=== PATIENT | female | born 1945 | race Caucasian/White ===

== ENCOUNTER 2016-06-16 10:59 | Emergency (ER) | payer OTHER ==
--- NOTE | 2016-06-16 11:09 | PDOC ---
History of Present Illness - General History Source: Patient, EMS Exam Limitations: No Limitations - History of Present Illness Initial Comments: 06/16/16 11:20 The patient is a 70 year old female brought via EMS and presenting with her , with a significant past medical history of HTN, HLD, asthma and diabetes, who presents to the emergency department with left hip pain and back pain, after a fall today roughly 1 hour prior to presentation. She states that she was walking on the sidewalk and when she slipped on ice, landing on her buttocks and then hitting the back of her head. She denies head trauma or loss of consciousness. She notes that she wanted to get up but other individuals on the scene would not allow her as to be precautious. On presentation the patient is able to move her lower extremities without any complications. The patient denies chest pain, shortness of breath, headache and dizziness. Allergies: None Past surgical history: None reported Social history: No alcohol, tobacco or drug use reported <Jacky Posey - Last Filed: 06/16/16 13:21> <Ric Awan - Last Filed: 06/16/16 13:29> - General Stated Complaint: FALL Time Seen by Provider: 06/16/16 11:07 Past History <Jacky Posey - Last Filed: 06/16/16 13:21> - Past Medical History Asthma: Yes Diabetes: Yes HTN: Yes Hypercholesterolemia: Yes - Psycho/Social/Smoking Cessation Hx Suicidal Ideation: No Smoking Status: No Smoking History: Never smoked Have you smoked in the past 12 months: No Number of Cigarettes Smoked Daily: 0 Hx Alcohol Use: No Drug/Substance Use Hx: No Substance Use Type: None Hx Substance Use Treatment: No <Ric Awan - Last Filed: 06/16/16 13:29> - Past Medical History Allergies/Adverse Reactions: Allergies Allergy/AdvReac Type Severity Reaction Status Date / Time No Known Allergies Allergy Verified 06/16/16 11:27 Home Medications: Ambulatory Orders Amlodipine Besylate [Norvasc -] 10 mg PO DAILY 06/27/15 Buspirone HCl [Buspar -] 10 mg PO DAILY 06/27/15 Calcium Carbonate/Vitamin D3 [Calcium 500-Vit D3 200 Caplet] 1 each PO BID 02/10 /16 Esomeprazole Mag Trihydrate [Nexium] 40 mg PO DAILY 06/27/15 [place]-3 Acid Ethyl Esters [Lovaza -] 2,000 mg PO BID 06/27/15 Valsartan [Diovan] 160 mg PO DAILY 06/27/15 Budesonide/Formeterol Fumarate [SYMBICORT 160/4.5mcg -] 2 puff IH BID inhaler 06/28/15 Guaifenesin [Mucinex -] 600 mg PO BID tablet.er 06/28/15 Montelukast Na [Singulair -] 10 mg PO HS tablet 06/28/15 Review of Systems - Review of Systems Able to Perform ROS?: Yes Comments:: 06/16/16 11:20 <Jacky Posey - Last Filed: 06/16/16 13:21> - Review of Systems Constitutional: No: Chills, Fever HEENTM: No: Recent change in vision Respiratory: No: Shortness of Breath Cardiac (ROS): No: Chest Pain ABD/GI: No: Nausea, Vomiting Musculoskeletal: Yes: Muscle Pain Neurological: No: Headache, Tingling, Weakness All Other Systems: Reviewed and Negative <Ric Awan - Last Filed: 06/16/16 13:29> *Physical Exam - Physical Exam Comments: 06/16/16 11:20 General: Patient is alert and in no acute distress. Speech is clear and appropriate. Head: Atraumatic and nontender. HEENT: Pupils are equal round and reactive to light, extraocular movements are intact. The tympanic membranes are clear, no hemotympanum. No facial deformity/tenderness, no septal hematoma. The oropharynx is clear. Neck: The trachea is midline, there is no stridor. There is no midline cervical spine tenderness, full range of motion of neck. Chest: Nontender, no ecchymosis or abrasions. Heart: S1-S2, regular rate and rhythm. No murmurs. Lungs: Clear to auscultation bilaterally. Symmetric chest rise. Abdomen: Soft/nontender/nondistended. Bowel sounds are normal. There is no abdominal or flank ecchymosis. Musculoskeletal: No rib deformity, bruising or tenderness. Back/Pelvis: +Left hip discomfort to palpation. But no deformity. Full range of motion. There is no midline spinal tenderness or step-off. Pelvis is stable and nontender. Extremities: There is no extremity deformity or joint swelling. No focal bony tenderness throughout. 2+ distal pulses throughout. Neuro: Alert and oriented x3. Cranial nerves II through XII are intact. 5 out of 5 motor strength x4 extremities. Finger-nose- finger is intact. No pronator drift. Gait is stable. Skin: No abrasions/hematomas/lacerations. Psych: Affect is appropriate. <Jacky Posey - Last Filed: 06/16/16 13:21> ED Treatment Course - RADIOLOGY Radiograph Interpretation: 06/16/16 12:[address] Reviewed by: Dr. Kale Peñaloza Impression: No evidence of acute intracranial hemorrhage, edema, midline shift, mass effect or skull fracture. No CT evidence of acute territorial infarction. Hip/Pelvis Left Reviewed by: Dr. Awais Interiano Impression: No acute abnormality is seen. <Jacky Posey - Last Filed: 06/16/16 13:21> Medical Decision Making - Medical Decision Making 06/16/16 11:23 A portion of this note was documented by scribe services under my direction. I have reviewed the details of the note, within reason, and agree with the documentation with the following case summary and management plan written by me. 70-year-old female brought in by EMS complaining of posterior head and left leg pain after slip and fall on ice. Landed initially on her lower back and buttock , then struck the back of her head. No loss of consciousness, bystanders told her to lay on the floor while he called EMS. Patient feels well otherwise, wants to go home, ambulated comfortably in the ED without difficulty. Trauma exam as noted with some left hip discomfort, but full range of motion and neurovascularly intact. 70-year-old female with mechanical slip and fall on ice, positive head injury and left hip injury, no clinical evidence of fracture. Neurologically intact. CT head Left hip and pelvis Tramadol for pain Reassess and dispo 06/16/16 13:26 X-ray and CAT scan negative for acute injury. Remains neurologically intact, ambulating steadily in ED, stable for discharge. Understands return criteria. <Ric Awan - Last Filed: 06/16/16 13:29> *DC/Admit/Observation/Transfer - Attestations Scribe Attestion: 06/16/16 11:21 Documentation prepared by Jacky Posey, acting as medical staff credentialing coordinator for iRc Awan MD. <Jacky Posey - Last Filed: 06/16/16 13:21> <Ric Awan - Last Filed: 06/16/16 13:29> Diagnosis at time of Disposition: Accidental fall Qualifiers: Encounter type: initial encounter Qualified Code(s): W19.XXXA - Unspecified fall, initial encounter Closed head injury Qualifiers: Encounter type: initial encounter Qualified Code(s): S09.90XA - Unspecified injury of head, initial encounter - Discharge Dispostion Disposition: HOME Condition at time of disposition: Improved - Patient Instructions Printed Discharge Instructions: DI for Closed Head Injury, DI for Musculoskeletal Pain Additional Instructions: Activity as tolerated. Stay hydrated. There is no evidence of acute injury in the head or Left hip. Tylenol 1000 mg every 8 hours and/or ibuprofen 600 mg every 8 hours as needed for pain. Ice and elevate the affected areas for 20 minutes every 3-4 hours to reduce swelling. Continue your medications as previously prescribed by your physician. You should follow up with your primary doctor as needed regarding today's emergency department visit. Return to the emergency department for any new or concerning symptoms, particularly worsening headache or confusion or vomiting, severe swelling, discoloration, numbness, tingling, pain.
[2016-06-16] MEDS ORDERED: traMADol HCL 50 MG TABLET PO ONE (11:19)
[2016-06-16] MEDS ORDERED: traMADol HCL 50 MG TABLET ONE (11:29)
[2016-06-16 11:30] VITALS: BMI 28.9
[2016-06-16 14:07] VITALS: BP 145/90; PULSE 70; TEMP 98.1
== END 2016-06-16 14:07 | disposition home or self-care (01) ==
LOC: SUPCPDRO 10:59 → JER 10:59
DX: S09.8XXA Other specified injuries of head, initial encounter (principal); W00.2XXA Other fall from one level to another due to ice and snow, initial encounter; Y93.89 Activity, other specified; Y92.480 Sidewalk as the place of occurrence of the external cause; I10 Essential (primary) hypertension; E11.9 Type 2 diabetes mellitus without complications; E78.00 Pure hypercholesterolemia, unspecified; J45.909 Unspecified asthma, uncomplicated
CPT/HCPCS: 70450-TC; 73523-TC; 99283-25

== ENCOUNTER → 2016-10-04 | Emergency (ER) | payer OTHER ==
[~2016-10-04] MED LIST: ALBUTEROL SO4 2.5/IPRATROPIUM 0.5 INH SOL 3 ML VIAL.NEB. NEB ONE; AZITHROMYCIN 250 MG TABLET (FP) ONE; AZITHROMYCIN 250 MG TABLET (FP) PO ONE; METHOCARBAMOL 500 MG TABLET ONE; METHOCARBAMOL 500 MG TABLET PO ONE; ONDANSETRON 4 MG/2 ML VIAL IVPB ONE; ONDANSETRON 4 MG/2 ML VIAL ONE; SODIUM CHLORIDE 1,000 ML IV STA; morphine CARPU-JECT 2 MG/1 ML DISP.SYRIN IVPUSH ONE; morphine CARPU-JECT 2 MG/1 ML DISP.SYRIN ONE; predniSONE 20 MG TABLET (UD) ONE; predniSONE 20 MG TABLET (UD) PO ONE
[2016-10-04 01:20] VITALS: BMI 26.5
[2016-10-04 02:24] LABS: BASOPHIL 0.6 % (0-2.0); EOSINOPHIL 5.6 % (0-4.5); MCH 26.7 pg (25.7-33.7); MCHC 32.6 g/dl (32.0-36.0); MEAN CELL VOLUME 81.6 fl (80-96); MEAN PLT VOLUME 7.6 fl (7.5-11.1); NEUTROPHILS 65.6 % (42.8-82.8); PLATELET COUNT 208 K/MM3 (134-434); RDW 14.5 % (11.6-15.6); WHITE BLOOD COUNT 8.7 K/mm3 (4.0-10.0)
[2016-10-04 02:28] LABS: URINE APPEARANCE CLEAR; URINE BILIRUBIN NEGATIVE (NEGATIVE); URINE BLOOD NEGATIVE (NEGATIVE); URINE COLOR STRAW; URINE GLUCOSE (UA) NEGATIVE (NEGATIVE); URINE KETONE NEGATIVE (NEGATIVE); URINE NITRITE NEGATIVE (NEGATIVE); URINE PROTEIN NEGATIVE (NEGATIVE); URINE UROBILINOGEN NEGATIVE E.U./dl (0.2-1.0)
[2016-10-04] MEDS: ALBUTEROL SO4 2.5/IPRATROPIUM 0.5 INH SOL 3 ML VIAL.NEB. NEB SCH ×3 (02:30→03:14)
[2016-10-04 02:46] LABS: ALBUMIN 4.1 g/dl (3.4-5.0); ANION GAP 10 (8-16); CALCIUM 8.9 mg/dL (8.5-10.1); CO2 28 mmol/L (21-32); CREATININE 0.7 mg/dL (0.55-1.02); GLUCOSE,RANDOM 117 mg/dL (74-106); MAGNESIUM 1.8 mg/dL (1.8-2.4); SGOT/AST 26 U/L (15-37); SGPT/ALT 34 U/L (12-78)
[2016-10-04 02:48] LABS: URINE LEUK ESTERASE 2+ (NEGATIVE)
[2016-10-04 02:49] LABS: URINE MUCUS RARE; URINE RBC 1 /hpf (0-3); URINE WBC 2 /hpf (3-5)
[2016-10-04 02:50] LABS: ALK PHOS 114 U/L (45-117); BILIRUBIN,TOTAL 0.5 mg/dL (0.2-1.0); TOT PROT 7.9 g/dl (6.4-8.2); TROPONIN I < 0.02 ng/ml (0.00-0.05)
--- NOTE | 2016-10-04 06:08 | PDOC ---
History of Present Illness - General Chief Complaint: Headache Stated Complaint: BLOOD PRESSURE PROBLEM,HEADACHE Time Seen by Provider: 10/04/16 01:47 History Source: Patient Exam Limitations: No Limitations - History of Present Illness Initial Comments: 10/04/16 06:03 70yo Female patient w/ PmHx: HTN, DM presents to ED c/o h/a, congestion, groin pain which began on Thursday. Patient states symptom have gotten worse. Patient also reports blood pressure is "high." Denies CP, Abd pain, Diff breathing, fever, n/v/d, rash, or any other complaints at this time. Past History - Travel Traveled outside of the country in the last 30 days: No Close contact w/someone who was outside of country & ill: No - Past Medical History Allergies/Adverse Reactions: Allergies Allergy/AdvReac Type Severity Reaction Status Date / Time No Known Allergies Allergy Verified 10/04/16 01:14 Home Medications: Ambulatory Orders Amlodipine Besylate [Norvasc -] 10 mg PO DAILY 06/27/15 Buspirone HCl [Buspar -] 10 mg PO DAILY 06/27/15 Calcium Carbonate/Vitamin D3 [Calcium 500-Vit D3 200 Caplet] 1 each PO BID 06/27 Esomeprazole Mag Trihydrate [Nexium] 40 mg PO DAILY 06/27/15 [place]-3 Acid Ethyl Esters [Lovaza -] 2,000 mg PO BID 06/27/15 Valsartan [Diovan] 160 mg PO DAILY 06/27/15 Budesonide/Formeterol Fumarate [SYMBICORT 160/4.5mcg -] 2 puff IH BID inhaler 06/28/15 Guaifenesin [Mucinex -] 600 mg PO BID tablet.er 06/28/15 Montelukast Na [Singulair -] 10 mg PO HS tablet 06/28/15 Tramadol HCl [Ultram] 50 mg PO BID PRN #10 tablet MDD 2 06/16/16 Albuterol Sulfate Inhaler - [Ventolin Hfa Inhaler -] 1 - 2 inh PO Q4H PRN #1 inhaler 10/04/16 Azithromycin [Zithromax -] 250 mg PO DAILY #4 tablet 10/04/16 Prednisone 10 mg PO ASDIR #1 tab.ds.pk 10/04/16 Asthma: Yes Diabetes: Yes HTN: Yes Hypercholesterolemia: Yes - Immunization History Immunization Up to Date: Yes - Psycho/Social/Smoking Cessation Hx Suicidal Ideation: No Smoking Status: No Smoking History: Never smoked Have you smoked in the past 12 months: No Number of Cigarettes Smoked Daily: 0 Information on smoking cessation initiated: No Hx Alcohol Use: No Drug/Substance Use Hx: No Substance Use Type: None Hx Substance Use Treatment: No Review of Systems - Review of Systems Able to Perform ROS?: Yes Is the patient limited Estonian proficient: No Constitutional: No: Chills, Fever HEENTM: Yes: Nose Congestion. No: Eye Pain, Blurred Vision, Hearing Loss, Throat Pain, Throat Swelling, Mouth Pain, Difficulty Swallowing Respiratory: Yes: Cough. No: Shortness of Breath, Stridor, Wheezing Cardiac (ROS): No: Chest Pain, Edema, Syncope, Chest Tightness ABD/GI: No: Diarrhea, Nausea, Poor Appetite, Poor Fluid Intake, Vomiting, Abdominal cramping : No: Burning, Dysuria, Flank Pain, Hematuria Musculoskeletal: No: Back Pain, Joint Pain, Muscle Weakness Integumentary: No: Bruising, Erythema, Rash Neurological: Yes: Headache. No: Numbness, Seizure, Weakness, Ataxia, Dizziness All Other Systems: Reviewed and Negative *Physical Exam - Vital Signs Last Vital Signs Temp Pulse Resp BP Pulse Ox 97.1 F L 92 H 18 166/71 97 10/04/16 01:14 10/04/16 01:14 10/04/16 01:14 10/04/16 01:14 10/04/16 01:14 - Physical Exam General Appearance: Yes: Nourished, Appropriately Dressed. No: Apparent Distress, Mild Distress, Moderate Distress, Severe Distress HEENT: positive: EOMI, MEREDITH, Normal ENT Inspection, Normal Voice, Symmetrical, TMs Normal, Pharynx Normal, Nasal Congestion. negative: Pharyngeal Erythema, Tonsillar Exudate, Tonsillar Erythema, Rhinorrhea, TM Bulging, TM Dull, TM Erythema Neck: positive: Trachea midline, Supple. negative: Decreased range of motion, Stridor, Lymphadenopathy (R), Lymphadenopathy (L) Respiratory/Chest: positive: Wheezing (Mild). negative: Respiratory Distress, Accessory Muscle Use, Crackles, Rales, Rhonchi, Stridor Cardiovascular: positive: Regular Rhythm, Regular Rate Gastrointestinal/Abdominal: positive: Normal Bowel Sounds, Soft. negative: Distended, Guarding, Rebound, Tenderness Musculoskeletal: positive: Normal Inspection. negative: CVA Tenderness, Vertebral Tenderness Extremity: positive: Normal Capillary Refill, Normal Inspection, Normal Range of Motion. negative: Pedal Edema, Swelling, Calf Tenderness, Erythema, Inflammation Integumentary: positive: Normal Color, Dry, Warm. negative: Rash, Swelling Neurologic: positive: stem crusher II-XII NML intact, Fully Oriented, Alert, Normal Mood/ Affect, Normal Response, Motor Strength 09/19 ED Treatment Course - LABORATORY CBC & Chemistry Diagram: 10/04/16 02:20 10/04/16 02:20 - ADDITIONAL ORDERS Additional order review: Laboratory Results 10/04/16 10/04/16 02:20 02:17 Sodium 141 Potassium 4.2 Chloride 103 Carbon Dioxide 28 D Anion Gap 10 BUN 13 Creatinine 0.7 Creat Clearance w eGFR > 60 Random Glucose 117 H Calcium 8.9 Magnesium 1.8 Total Bilirubin 0.5 D AST 26 ALT 34 Alkaline Phosphatase 114 Creatine Kinase 170 D Creatine Kinase Index 1.8 CK-MB (CK-2) 3.079 Troponin I < 0.02 Total Protein 7.9 Albumin 4.1 Urine Color Straw Urine Appearance Clear Urine pH 7.0 Urine Protein Negative Urine Glucose (UA) Negative Urine Ketones Negative Urine Blood Negative Urine Nitrite Negative Urine Bilirubin Negative Urine Urobilinogen Negative Ur Leukocyte Esterase 2+ H D Urine RBC 1 Urine WBC 2 Ur Epithelial Cells Rare Urine Mucus Rare 10/04/16 02:20 RBC 5.17 MCV 81.6 MCHC 32.6 RDW 14.5 MPV 7.6 Neutrophils % 65.6 Lymphocytes % 15.5 D Monocytes % 12.7 H D Eosinophils % 5.6 H D Basophils % 0.6 - RADIOLOGY Radiology Studies Ordered: Category Date Time Status CHEST PA & LAT [RAD] Stat Radiology 10/04/16 01:54 Taken - Medications Given in the ED: ED Medications Discontinued Medications Generic Name Dose Route Start Last Admin Trade Name Freq PRN Reason Stop Dose Admin Albuterol/Ipratropium 1 amp 10/04/16 02:00 10/04/16 03:14 Duoneb - NEB 10/04/16 02:31 1 amp Q15M RANDY Administration Sodium Chloride 1,000 mls @ 1,000 mls/hr 10/04/16 01:54 10/04/16 02:30 Normal Saline - IV 10/04/16 02:53 1,000 mls/hr ASDIR STA Administration Morphine Sulfate 2 mg 10/04/16 01:54 10/04/16 02:30 Morphine Injection - IVPUSH 10/04/16 01:55 2 mg ONCE ONE Administration Ondansetron HCl 4 mg 10/04/16 01:54 10/04/16 02:30 Zofran Injection IVPB 10/04/16 01:55 4 mg ONCE ONE Administration *DC/Admit/Observation/Transfer Diagnosis at time of Disposition: Upper respiratory infection, viral - Discharge Dispostion Disposition: HOME Condition at time of disposition: Improved Admit: No - Prescriptions Prescriptions: Prednisone 10 mg PO ASDIR #1 tab.ds.pk Albuterol Sulfate Inhaler - [Ventolin Hfa Inhaler -] 1 - 2 inh PO Q4H PRN #1 inhaler PRN Reason: trouble breathing Azithromycin [Zithromax -] 250 mg PO DAILY #4 tablet - Referrals Referrals: Lilly Torres MD [Primary Care Provider] - - Patient Instructions Printed Discharge Instructions: DI for Viral Upper Respiratory Infection -- Adult Additional Instructions: FOLLOW UP WITH YOUR PRIMARY CARE PROVIDER THIS WEEK FOR FURTHER EVALUATION. TAKE MEDICATIONS PRESCRIBED. Print Language: SERBIAN
[2016-10-04 06:37] VITALS: BP 150/76; PULSE 95; TEMP 97.6
--- NOTE | 2016-10-04 12:05 | EKG ---
Test Reason : Blood Pressure : / mmHG Vent. Rate : 092 BPM Atrial Rate : 092 BPM P-R Int : 126 ms QRS Dur : 074 ms QT Int : 334 ms P-R-T Axes : 055 -22 059 degrees QTc Int : 413 ms NORMAL SINUS RHYTHM CANNOT RULE OUT ANTERIOR INFARCT (CITED ON OR BEFORE 04-DEC-2011) POOR R WAVE PROGRESSION WHEN COMPARED WITH ECG OF 27-JUN-2015 17:23, NO SIGNIFICANT CHANGE WAS FOUND Confirmed by MD NILS, JOSUÉ ([id number]) on 10/04/2016 12:05:10 PM Referred By: Confirmed By:JOSUÉ WRAY MD
== END | disposition home or self-care (01) ==
LOC: JER 00:57
PROC: 3E033NZ Introduction of Analgesics, Hypnotics, Sedatives into Peripheral Vein, Percutaneous Approach (ICD-10-PCS; principal; 2016-10-04)
PROC: 3E033GC Introduction of Other Therapeutic Substance into Peripheral Vein, Percutaneous Approach (ICD-10-PCS; 2016-10-04)
DX: J06.9 Acute upper respiratory infection, unspecified (principal); B97.89 Other viral agents as the cause of diseases classified elsewhere; I10 Essential (primary) hypertension; E11.9 Type 2 diabetes mellitus without complications; Z79.84 Long term (current) use of oral hypoglycemic drugs; J45.909 Unspecified asthma, uncomplicated; E78.00 Pure hypercholesterolemia, unspecified
CPT/HCPCS: 36415; 71020-TC; 80053; 81003; 81015; 82550; 82553; 83735; 84484; 85025; 87086; 93005; 93010; 96374; 96375; 99282-25